=== PATIENT | male | born 1985 | race Caucasian/White ===

== ENCOUNTER 2022-10-04 09:07 | Emergency (ER) | payer OTHER, SELFPAY ==
[2022-10-04 09:22] VITALS: BP 114/71; PULSE 87; RESP 20; TEMP 37.3; O2SAT 100
--- NOTE | 2022-10-04 09:23 | ED.URI ---
HPI - URI/Sore Throat General Stated Complaint: fever/aches Time Seen by Provider: 10/04/22 09:23 Source: patient and RN notes reviewed History of Present Illness HPI Narrative: Patient is a 37-year-old male who presents to urgent care with complaints of body aches, fever and chills off and on for the last 2-3 days. Patient states his last dose of Tylenol was at 6:00 a.m.. Patient denies sore throat, nausea, vomiting, abdominal pain, dental pain, headache. Patient states he feels fine now. States he is also having all of his teeth removed next month and has not had an antibiotic for dental pain and some time. No other acute complaints. Denies any ill exposures. No acute distress noted. Patient aware of the plan of care. Some parts of this dictation were generated by voice recognition software and may contain typographical and/or grammatical inaccuracies. Related Data Home Medications Medication Instructions Recorded Confirmed No Home Medications 10/04/22 10/04/22 Allergies Allergy/AdvReac Type Severity Reaction Status Date / Time No Known Allergies Allergy Verified 10/04/22 09:37 Review of Systems Review of Systems: CONSTITUTIONAL: Reports of fever, chills, body aches EYES: Denies visual changes, redness, or discharge. ENT: Denies rhinorrhea, congestion, sore throat, or otalgia. CARDIOVASCULAR: Denies chest pain, palpitations, or edema. RESPIRATORY: Denies cough or dyspnea. GASTROINTESTINAL: Denies abdominal pain, nausea, vomiting, or diarrhea. GENITOURINARY: Denies dysuria or hematuria. SKIN: Denies rash or itching. MUSCULOSKELETAL: Denies back pain, joint pain NEUROLOGIC: Denies headache, numbness, or weakness. All other systems reviewed are negative, except as documented in HPI. PMFSH Comments At the time of my signature, I reviewed and agree with the nursing past medical, surgical, social, and family history. There is no relevant family history pertinent to the patient complaint. Exam Narrative: GENERAL: This is a well-nourished, well-developed patient, in no apparent distress. HEAD: normocephalic, atraumatic. EYES: PERRL. Sclera clear/white. Vision is grossly intact. EARS: External ears normal, auditory canals clear and without drainage, TMs normal without perforation. Hearing grossly intact. NOSE: External nose normal with no obvious nasal discharge, nares without redness, no rhinorrhea. THROAT: Mucous membranes moist, posterior pharynx clear. Mild postnasal drainage dental: Poor dental hygiene with multiple caries NECK: Neck supple, non-tender without lymphadenopathy, masses or thyromegaly. CARDIOVASCULAR: Regular rate and rhythm without murmurs, gallops, or rubs. RESPIRATORY: Clear to auscultation. Breath sounds equal bilaterally. No wheezes, rales, or rhonchi. SKIN: warm, intact with no suspicious lesions or rash, good texture and turgor. NEURO: awake, alert, and oriented to person, place and time. There were no obvious focal neurologic abnormalities. EXTREMITIES: No clubbing, cyanosis, or edema. Course Course Level of Care: Express Care Visit Vital Signs Vital signs: Vital Signs Temperature 99.1 F 10/04/22 09:22 Pulse Rate 87 10/04/22 09:22 Respiratory Rate 20 10/04/22 09:22 Blood Pressure 114/71 10/04/22 09:22 Pulse Oximetry 100 10/04/22 09:22 Oxygen Delivery Room Air 10/04/22 09:22 Temperature 99.1 F 10/04/22 09:22 Pulse Rate 87 10/04/22 09:22 Respiratory Rate 20 10/04/22 09:22 Blood Pressure 114/71 10/04/22 09:22 Pulse Oximetry 100 10/04/22 09:22 Oxygen Delivery Room Air 10/04/22 09:22 Reviewed MDM - URI/Sore Throat MDM Narrative Medical decision making narrative: Explained viral infection to the patient. Fevers are typical with viral illness and [id number] treatment is appropriate. Advised patient to continue Tylenol/ibuprofen as needed. Increase water intake and rest. Would recommend testing herself at home with
== END 2022-10-04 09:43 | disposition home or self-care (01) ==
PROVIDERS: Emergency Provider Nurse Practitioner Family
DX: B34.9 Viral infection, unspecified (principal)
CPT/HCPCS: 99202; G0463

== ENCOUNTER 2023-03-27 10:41 | Emergency (ER) | payer OTHER, SELFPAY ==
[2023-03-27 10:47] VITALS: BP 114/63; PULSE 82; RESP 18; TEMP 36.9; O2SAT 97
--- NOTE | 2023-03-27 11:20 | ED.ABDPAIN ---
HPI - Abdominal Pain General Chief Complaint: Abdominal Pain Stated Complaint: Lower left abdo pain Time Seen by Provider: 03/27/23 11:24 Source: patient, RN notes reviewed and old records reviewed Mode of arrival: ambulatory Limitations: no limitations History of Present Illness HPI narrative: 37-year-old male presents to [facility] with complaint dry cough for 3 or 4 days, and is also now having left lower quadrant pain. Patient is denies nausea vomiting diarrhea, patient denies urinary symptoms, fevers. Patient states things is a pulled muscle. Patient states pain is improving MD elicited complaint: abdominal pain Onset (ago): day(s) ( 3) Related Data Allergies Allergy/AdvReac Type Severity Reaction Status Date / Time No Known Allergies Allergy Verified 03/27/23 11:11 Review of Systems Constitutional: Constitutional: Reports no additional constitutional complaints Eyes: Eyes: Reports no additional eye complaints ENT: Reports system reviewed and no additional complaints, except as documented Cardiovascular: Cardiovascular: Reports no additional cardiovascular complaints Respiratory: Respiratory: Reports as per HPI and Reports cough Gastrointestinal: Gastrointestinal: Reports as per HPI and Reports abdominal pain ( o) Neurologic: Reports system reviewed and no additional complaints, except as documented PMFSH Comments At the time of my signature, I reviewed and agree with the nursing past medical, surgical, social, and family history. There is no relevant family history pertinent to the patient complaint. Exam Const: General: cooperative, healthy appearing, no acute distress and well nourished Nutritional Appearance: well nourished Orientation/consciousness: patient oriented x3 Limitations: no limitations HENMT: Head: normal to inspection and normocephalic Ears: external ears normal, TM's normal bilaterally, mastoids normal and Abnormal EAC present Face/Nose/Sinus: normal facial exam Face and sinus: normal facial exam Mouth: Yes Normal oral and palatal mucosa present, Yes oropharynx normal and Yes moist mucous membranes Throat: posterior oropharynx normal, tonsils normal, uvula midline and no uvular edema Eyes: General: appearance normal, both eyes and all related structures Sclera: sclerae normal Pupils: Equal, round and reactive pupils present Resp: Effort & Inspection: normal respiratory effort, able to speak in complete sentences, no audible wheezes, no cough, no respiratory distress and no retractions Auscultation: clear to auscultation bilaterally, no crackles, no rales, no rhonchi and no wheezes Cardio: Rate: regular rate Rhythm: regular rhythm Skin: General skin exam: normal color and no rashes or lesions noted Neuro: General: patient oriented x3 Cranial nerves: Yes Equal, round and reactive pupils present Psych: Appearance: grossly normal Course Course Emergency Course: Some parts of this dictation were generated by voice recognition software and may contain typographical and/or grammatical inaccuracies. Level of Care: Express Care Visit Vital Signs Vital signs: Vital Signs Temperature 98.4 F 03/27/23 10:47 Pulse Rate 82 03/27/23 10:47 Respiratory Rate 18 03/27/23 10:47 Blood Pressure 114/63 03/27/23 10:47 Pulse Oximetry 97 03/27/23 10:47 Oxygen Delivery Room Air 03/27/23 10:47 Temperature 98.4 F 03/27/23 10:47 Pulse Rate 82 03/27/23 10:47 Respiratory Rate 18 03/27/23 10:47 Blood Pressure 114/63 03/27/23 10:47 Pulse Oximetry 97 03/27/23 10:47 Oxygen Delivery Room Air 03/27/23 10:47 Reviewed MDM - Abdominal Pain MDM Narrative Medical decision making narrative: patient with cough and lower left abdominal pain. Patient denies fever, nausea/vomiting/ diarrhea. patient states believes is upon muscle. Discussed differential diagnosis with patient related to abdominal pain, also discussed possible need for further evaluation.
== END 2023-03-27 11:30 | disposition home or self-care (01) ==
PROVIDERS: Emergency Provider Registered Nurse
DX: R05.1 Acute cough (principal); R10.32 Left lower quadrant pain
CPT/HCPCS: 99213; G0463

== ENCOUNTER 2023-06-22 19:30 | Emergency (ER) | payer OTHER, SELFPAY ==
[2023-06-22 19:38] VITALS: BP 141/77; PULSE 112; RESP 18; TEMP 37.2; O2SAT 99
--- NOTE | 2023-06-22 19:43 | ED.URI ---
HPI - URI/Sore Throat General Chief Complaint: Upper Respiratory Infection Stated Complaint: throat Time Seen by Provider: 06/22/23 19:43 Source: patient, RN notes reviewed and old records reviewed Mode of arrival: ambulatory Limitations: no limitations History of Present Illness HPI Narrative: 38-year-old male presents to the [facility] with complaints of a sore throat since yesterday. Denies fevers. Denies any other symptoms. Has taken Tylenol and Motrin Related Data Home Medications Medication Instructions Recorded Confirmed No Home Medications 06/22/23 06/22/23 Allergies Allergy/AdvReac Type Severity Reaction Status Date / Time No Known Allergies Allergy Verified 06/22/23 19:49 Review of Systems Review of Systems: All systems reviewed & are unremarkable except as noted in HPI and below Constitutional: Constitutional: Reports no additional constitutional complaints Eyes: Eyes: Reports no additional eye complaints ENT: Reports as per HPI and Reports sore throat Cardiovascular: Cardiovascular: Reports no additional cardiovascular complaints, Denies chest pain and Denies dyspnea Respiratory: Respiratory: Reports no additional respiratory complaints, Denies chest congestion, Denies cough and Denies dyspnea Gastrointestinal: Gastrointestinal: Reports no additional gastrointestinal complaints, Denies abdominal pain, Denies nausea and Denies vomiting Musculoskeletal: Musculoskeletal: Reports no additional musculoskeletal complaints Integumentary/Breasts: Skin/Breast: Reports system reviewed and no additional complaints, except as docu Neurologic: Reports system reviewed and no additional complaints, except as documented Psychiatric: Psychiatric: Reports no additional psychiatric complaints Allergic/Immunologic: Allergic/Immunologic: Reports no additional allergic/immunologic complaints PMFSH Comments At the time of my signature, I reviewed and agree with the nursing past medical, surgical, social, and family history. There is no relevant family history pertinent to the patient complaint. Exam Const: General: cooperative, healthy appearing, comfortable, no acute distress, well developed, alert and well nourished Nutritional Appearance: well nourished Orientation/consciousness: patient oriented x3 Limitations: no limitations HENMT: Head: normal to inspection Ears: hearing grossly normal bilaterally, external ears normal, TM's normal bilaterally, EAC's normal, mastoids normal and no periauricular adenopathy Face/Nose/Sinus: Normal external nose present, Normal nares present, Normal nasal mucous membranes and turbinates present, normal facial exam and face symmetric Face and sinus: normal facial exam and face symmetric Mouth: Yes Normal oral and palatal mucosa present, Yes lip normal and Yes moist mucous membranes Throat: posterior oropharynx normal, tonsils normal, uvula midline, postnasal drainage and no uvular edema Eyes: General: appearance normal, both eyes and all related structures Alignment and Position: alignment normal Periorbital: periorbital findings normal Pupils: Equal, round and reactive pupils present EOM: EOMs intact bilaterally Neck: Neck: normal visual inspection, full ROM, no lymphadenopathy and no meningeal signs Chest: Chest palpation & inspection: normal inspection of the chest Resp: Effort & Inspection: normal respiratory effort and able to speak in complete sentences Auscultation: clear to auscultation bilaterally, no crackles, no rales, no rhonchi and no wheezes Cardio: Rate: regular rate Rhythm: regular rhythm Back/Spine/Pelvis: Cervical Spine: cervical ROM normal Skin: General skin exam: normal color and no rashes or lesions noted Lesions: no lesions Rashes: no rashes Wounds: no wounds Neuro: General: patient oriented x3, gait normal, tone normal, moves all extremities and no meningeal signs Cranial nerves: Yes Equal, round and reactive pupils present Cognition (Neur
[2023-06-22 19:49] VITALS: BP 141/77; PULSE 112; RESP 18; TEMP 37.2; O2SAT 99
== END 2023-06-22 20:02 | disposition home or self-care (01) ==
PROVIDERS: Emergency Provider Nurse Practitioner
DX: J02.9 Acute pharyngitis, unspecified (principal)
CPT/HCPCS: 87081; 87880; 99213; G0463